=== PATIENT | male | born 1995 | race Caucasian/White ===

== ENCOUNTER 2021-11-01 18:00 | Emergency (ER) | payer OTHER ==
[2021-11-01 19:57] LABS: INFLUENZA A NAA NEGATIVE (NEGATIVE)
[2021-11-01 20:00] LABS: CORONAVIRUS 2019 SARS-COV-2 POSITIVE (NEGATIVE)
[2021-11-01] MEDS ORDERED: PREDNISONE 20MG20 MG PO (21:13)
[2021-11-01] MEDS ORDERED: VENTOLIN HFA IN18 GM INH (21:28)
== END 2021-11-01 22:09 | disposition home or self-care (01) ==
LOC: FER 18:00
PROVIDERS: Emergency Medicine
DX: U07.1 COVID-19 (principal); J45.21 Mild intermittent asthma with (acute) exacerbation; Z23 Encounter for immunization
CPT/HCPCS: J7512; M0245; Q0245; U0002